=== PATIENT | male | born 1975 | race Caucasian/White ===

== ENCOUNTER → 2020-08-30 | Outpatient (CLI) | payer OTHER ==
--- NOTE | 2020-09-04 14:28 | PE ---
Nuclear medicine PET/CT HISTORY: Solitary pulmonary nodule, initial Patient received 13 mCi F-18 FDG intravenously in delayed scanning was performed from the skull base to the mid thighs. Localization and attenuation correction CT scan was performed. No comparisons Chest and neck: There is no cervical or supraclavicular adenopathy. Retrocaval pretracheal mediastina l node shows borderline enlargement. There is no associated adenopathy, there is a normal-appearing f atty hilus. No axillary or hilar adenopathy. Prevascular nodes are subcentimeter in size. There is no pleural or pericardial effusion. Calcified nodules are present within the lungs. Small soft tissue n odules present at the medial aspect of the left upper lobe on axial image 102 the subpleural location measuring only approximately 12 mm in size. No associated hypermetabolic uptake. ABDOMEN: Uptake along the bowel is likely physiologic. There is no ascites. No evident pelvic adenopa thy or retroperitoneal adenopathy. Suspect uptake along the inferior margin of the right lobe of the liver is artifactual, there is an unusual distribution which mirrors that of the hepatic flexure and proximal transverse colon, findings may be due to misregistration on diffusion images. Osseous structures show no suspicious uptake, there is a spinal curvature present. IMPRESSION: Old granulomatous disease. No suspicious uptake associated with pulmonary nodules, consid er follow-up to assess for stability
== END | disposition home or self-care (01) ==
LOC: RADPETMAIN 14:49
PROVIDERS: ATTEND Internal Medicine Critical Care Medicine
DX: D71 Functional disorders of polymorphonuclear neutrophils (principal); E11.9 Type 2 diabetes mellitus without complications
CPT/HCPCS: 78815; A9552

== ENCOUNTER 2023-02-27 12:23 | Inpatient (IN) | payer OTHER ==
--- NOTE | 2023-02-27 13:02 | ED ---
General Adult HPI - General Source: patient, RN notes reviewed, old records reviewed Mode of arrival: ambulatory Limitations: no limitations <Cheng Leone - Last Filed: 02/27/23 15:08> <Alejandro Chavez - Last Filed: 02/28/23 00:31> - General Chief complaint: Psychiatric Symptoms Stated complaint: mental health Time Seen by Provider: 02/27/23 12:25 - History of Present Illness Initial comments: This is a 47-year-old male presents emergency Department with his father and . Patient states he is here because he has been having some depression in the been very sad lately. Patient states he feels like he needs to get out of his own away from his but he still continued to live with her and they keep getting in arguments and he has pulled out of his gun case a gun multiple times threatening to hurt himself he never has but he does states for attention. Father believes he suicidal believes he suicidal. Patient denies suicidal he states it's just to get attention so someone was into her. Patient also states he has been told in the past his white count is elevated and he has elevated liver enzymes and he has multiple nodules on his lungs and is never followed up. Patient states lately he's been having difficulty breathing and some shortness of breath and states she's been coughing up quite a bit of blood. Patient denies any palpitations states she does have some chest pain occa sionally. He states his been ongoing for months. (Cheng Leone) - Related Data Home Medications Medication Instructions Recorded Confirmed Ascorbic Acid [Vitamin C] 1,000 mg PO DAILY 02/27/23 02/27/23 Multivit-Mins/Iron/Folic/Lycop 1 tab PO DAILY 02/27/23 02/27/23 [Centrum Men's Tablet] Omeprazole 20 mg PO DAILY 02/27/23 02/27/23 Sildenafil Citrate 50 mg PO DAILY PRN 02/27/23 02/27/23 Zinc Gluconate [Zinc] 50 mg PO DAILY 02/27/23 02/27/23 lisinopriL 40 mg PO DAILY 02/27/23 02/27/23 metFORMIN HCL ER [Glucophage XR] 1,000 mg PO BID 02/27/23 02/27/23 sitaGLIPtin [Januvia] 100 mg PO DAILY 02/27/23 02/27/23 Allergies Allergy/AdvReac Type Severity Reaction Status Date / Time No Known Allergies Allergy Verified 02/27/23 17:42 Review of Systems ROS Other: All systems not noted in ROS Statement are negative. <Cheng Leone - Last Filed: 02/27/23 15:08> ROS Other: All systems not noted in ROS Statement are negative. <Alejandro Chavez - Last Filed: 02/28/23 00:31> ROS Statement: Those systems with pertinent positive or pertinent negative responses have been documented in the HPI. Past Medical History Past Medical History: Diabetes Mellitus, Hypertension History of Any Multi-Drug Resistant Organisms: None Reported Past Surgical History: No Surgical Hx Reported Past Psychological History: No Psychological Hx Reported Smoking Status: Never smoker Past Alcohol Use History: Occasional Past Drug Use History: Heroin <Cheng Leone - Last Filed: 02/27/23 15:08> General Exam Limitations: no limitations <Cheng Leone - Last Filed: 02/27/23 15:08> - General Exam Comments Initial Comments: GENERAL: Patient is well-developed and well-nourished. Patient is nontoxic and well- hydrated and is in mild distress. ENT: Neck is soft and supple. No significant lymphadenopathy is noted. Oropharynx is clear. Moist mucous membranes. Neck has full range of motion without eliciting any pain. EYES: The sclera were anicteric and conjunctiva were pink and moist. Extraocular movements were intact and pupils were equal round and reactive to light. Eyelids were unremarkable. PULMONARY: Unlabored respirations. Good breath sounds bilaterally. No audible rales rhonchi or wheezing was noted. CARDIOVASCULAR: There is a regular rate and rhythm without any murmurs gallops or rubs. ABDOMEN: Soft and nontender with normal bowel sounds. SKIN: Skin is clear with no lesions or rashes and otherwise unremarkable. NEUROLOGIC: Patient is alert and oriented x3. Cranial nerves II through XII are grossly intact. Motor and sensory are also intact. Normal speech, volume and content. Symmetrical smile. MUSCULOSKELETAL: Normal extremities with adequate strength and full range of motion. LYMPHATICS: No significant lymphadenopathy is noted PSYCHIATRIC: Patient states he has made suicidal comments and he has pulled the gun out of the concave Synthroid to hurt himself (Cheng Leone) Course Vital Signs 02/27/23 02/27/23 02/27/23 12:23 22:35 22:37 Temperature 98 F 97.6 F Pulse Rate 88 Respiratory 16 20 20 Rate Blood Pressure 175/96 Blood Pressure 162/90 [Right Arm Sitting] O2 Sat by Pulse 97 98 98 Oximetry Medical Decision Making - Lab Data Result diagrams: 02/27/23 13:24 02/27/23 13:24 <Cheng Leone - Last Filed: 02/27/23 15:08> - Lab Data Result diagrams: 02/27/23 13:24 02/27/23 18:53 - EKG Data -: EKG Interpreted by Me <Alejandro Chavez - Last Filed: 02/28/23 00:31> - Medical Decision Making Patient is medically cleared 3:08 PM Was pt. sent in by a medical professional or institution (, PA, TEST GRADER, urgent care, hospital, or care home...) When possible be specific @ -[No] Did you speak to anyone other than the patient for history (EMS, parent, family, police, friend...)? What history was obtained from this source @ - and father both give part of the history from their perspective Did you review nursing and triage notes (agree or disagree)? Why? @ -[I reviewed and agree with nursing and triage notes] Were old charts reviewed (outside hosp., previous admission, EMS record, old EKG, old radiological studies, urgent care reports/EKG's, care home records)? Report findings @ -[No old charts were reviewed] Differential Diagnosis (chest pain, altered mental status, abdominal pain women, abdominal pain men, vaginal bleeding, weakness, fever, dyspnea, syncope, headach e, dizziness, GI bleed, back pain, seizure, CVA, palpatations, mental health, musculoskeletal)? @ -Differential Mental Health Depression, anxiety, bipolar, psychosis, schizophrenia, borderline personality, situational depression, adjustment disorder, behavioral disorder, brain tumor, malingering, substance abuse, encephalopathy, medication reaction, dementia, hypothyroidism, degenerative neurologic disorder, lupus.... This is not meant to be all-inclusive list EKG interpreted by me (3pts min.). @ -[As above] X-rays interpreted by me (1pt min.). @ -X-ray shows no acute abnormality CT interpreted by me (1pt min.). @ -[None done] U/S interpreted by me (1pt. min.). @ -[None done] What testing was considered but not performed or refused? (CT, X-rays, U/S, labs)? Why? @ -[None] What meds were considered but not given or refused? Why? @ -[None] Did you discuss the management of the patient with other professionals (professionals i.e. DrViktoria, PA, TEST GRADER, lab, RT, psych nurse, pediatric social worker, senior clinician, teacher, chief wellness officer, manager of case management)? Give summary @ -[No] Was smoking cessation discussed for >3mins.? @ -[No] Was critical care preformed (if so, how long)? @ -[No] Were there social determinants of health that impacted care today? How? (Homelessness, low income, unemployed, alcoholism, drug addiction, transportati on, low edu. Level, literacy, decrease access to med. care, detention, rehab)? @ -[No] Was there de-escalation of care discussed even if they declined (Discuss DNR or withdrawal of care, Hospice)? DNR status @ -[No] What co-morbidities impacted this encounter? (DM, HTN, Smoking, COPD, CAD, Cancer, CVA, ARF, Chemo, Hep., AIDS, mental health diagnosis, sleep apnea, morbid obesity)? @ -[None] Was patient admitted / discharged? Hospital course, mention meds given and route, prescriptions, significant lab abnormalities, going to OR and other pertinent info. @ -Patient had a basic workup done because he indicated he had a high white count in the past and liver enzymes were elevated in the past and he been coughing up some blood on occasion so I did chest x-ray and work the patient up lab work was all normal I medically cleared the patient and Dr. Chavez be taking over the care of this patient at 3 PM EPS nurse will be down to evaluate (Cheng Leone) Patient signed out to me pending results EPS evaluation. Was medically cleared by the primary physician. I was notified by EPS the patient does meet inpatient criteria. Patient will be admitted to inpatient psychiatry. EKG was obtained at this time and I reviewed it. It is within acceptable limits. Undiagnosed new problem with uncertain prognosis? @ -No Drug Therapy requiring intensive monitoring for toxicity (Heparin, Nitro, Insulin, Cardizem)? @ -No Were any procedures done? @ -No Diagnosis/symptom? @ -Encounter for psychiatric evaluation, depression, suicidal ideation Acute, or Chronic, or Acute on Chronic? @ -Acute Uncomplicated (without systemic symptoms) or Complicated (systemic symptoms)? @ -Complicated Side effects of treatment? @ -No Exacerbation, Progression, or Severe Exacerbation? @ -No Poses a threat to life or bodily function? How? (Chest pain, [place], [place], pneumonia, PE, COPD, DKA, ARF, appy, cholecystitis, CVA, Diverticulitis, Homicidal, Suicidal, threat to staff... and all critical care pts) @ -Yes (Alejandro Chavez) - Lab Data Lab Results 02/27/23 02/27/23 02/27/23 Range/Units 13:24 13:24 13:24 WBC 9.6 (3.8-10.6) k/uL RBC 5.59 (4.30-5.90) m/uL Hgb 17.0 (13.0-17.5) gm/dL Hct 50.6 (39.0-53.0) % MCV 90.5 (80.0-100.0) fL MCH 30.4 (25.0-35.0) pg MCHC 33.5 (31.0-37.0) g/dL RDW 12.5 (11.5-15.5) % Plt Count 232 (150-450) k/uL MPV 9.0 Neutrophils % 74 % Lymphocytes % 17 % Monocytes % 6 % Eosinophils % 2 % Basophils % 1 % Neutrophils # 7.1 (1.3-7.7) k/uL Lymphocytes # 1.6 (1.0-4.8) k/uL Monocytes # 0.5 (0-1.0) k/uL Eosinophils # 0.2 (0-0.7) k/uL Basophils # 0.1 (0-0.2) k/uL PT 10.4 (9.0-12.0) sec INR 1.0 (<1.2) APTT 22.6 (22.0-30.0) sec D-Dimer 0.30 (<0.60) mg/L FEU Sodium 134 L (137-145) mmol/L Potassium 5.1 (3.5-5.1) mmol/L Chloride 96 L (98-107) mmol/L Carbon Dioxide 29 (22-30) mmol/L Anion Gap 9 mmol/L BUN 14 (9-20) mg/dL Creatinine 0.79 (0.66-1.25) mg/dL Est GFR (CKD-EPI)AfAm >90 (>60 ml/min/1.73 sqM) Est GFR (CKD-EPI)NonAf >90 (>60 ml/min/1.73 sqM) Glucose 308 H (74-99) mg/dL Calcium 9.6 (8.4-10.2) mg/dL Magnesium 1.8 (1.6-2.3) mg/dL Total Bilirubin 1.2 (0.2-1.3) mg/dL AST 68 H (17-59) U/L ALT 125 H (4-49) U/L Alkaline Phosphatase 119 (38-126) U/L Total Protein 7.7 (6.3-8.2) g/dL Albumin 4.4 (3.5-5.0) g/dL Coronavirus (PCR) (Not Detectd) 02/27/23 02/27/23 Range/Units 18:53 18:53 WBC (3.8-10.6) k/uL RBC (4.30-5.90) m/uL Hgb (13.0-17.5) gm/dL Hct (39.0-53.0) % MCV (80.0-100.0) fL MCH (25.0-35.0) pg MCHC (31.0-37.0) g/dL RDW (11.5-15.5) % Plt Count (150-450) k/uL MPV Neutrophils % % Lymphocytes % % Monocytes % % Eosinophils % % Basophils % % Neutrophils # (1.3-7.7) k/uL Lymphocytes # (1.0-4.8) k/uL Monocytes # (0-1.0) k/uL Eosinophils # (0-0.7) k/uL Basophils # (0-0.2) k/uL PT (9.0-12.0) sec INR (<1.2) APTT (22.0-30.0) sec D-Dimer (<0.60) mg/L FEU Sodium 132 L (137-145) mmol/L Potassium 4.7 (3.5-5.1) mmol/L Chloride 98 (98-107) mmol/L Carbon Dioxide 26 (22-30) mmol/L Anion Gap 8 mmol/L BUN 15 (9-20) mg/dL Creatinine 0.74 (0.66-1.25) mg/dL Est GFR (CKD-EPI)AfAm >90 (>60 ml/min/1.73 sqM) Est GFR (CKD-EPI)NonAf >90 (>60 ml/min/1.73 sqM) Glucose 365 H (74-99) mg/dL Calcium 9.0 (8.4-10.2) mg/dL Magnesium (1.6-2.3) mg/dL Total Bilirubin 1.2 (0.2-1.3) mg/dL AST 65 H (17-59) U/L ALT 109 H (4-49) U/L Alkaline Phosphatase 98 (38-126) U/L Total Protein 7.0 (6.3-8.2) g/dL Albumin 3.9 (3.5-5.0) g/dL Coronavirus (PCR) Not Detected (Not Detectd) - EKG Data EKG Comments: 12-lead Electrocardiogram Interpretation Note EKG was reviewed and interpreted by myself. 12-lead ECG performed at 1853 is interpreted by me as revealing normal sinus rhythm at a rate of 31 beats per minute. [place] is normal. [place] interval is 132 ms, QRS durations 113 ms, QTc is 376 ms.. There were nonspecific ST or T wave abnormalities to suggest myocardial ischemia or injury. R wave progression across the precordium was satisfactory. By my interpretation this EKG is non-diagnostic for acute ischemia. (Alejandro Chavez) Disposition <Cheng Leone - Last Filed: 02/27/23 15:08> <Alejandro Chavez - Last Filed: 02/28/23 00:31> Clinical Impression: Encounter for psychiatric assessment, Suicidal ideation, Depression Disposition: ADMITTED IP TO THIS HOSP Condition: Stable
[2023-02-27 13:39] LABS: Basophils # (A) 0.1 k/uL (0-0.2); Basophils % (A) 1 %; Eosinophils # (A) 0.2 k/uL (0-0.7); Eosinophils % (A) 2 %; HCT 50.6 % (39.0-53.0); Lymphocytes # (A) 1.6 k/uL (1.0-4.8); Lymphocytes % (A) 17 %; MCH 30.4 pg (25.0-35.0); MCHC 33.5 g/dL (31.0-37.0); MCV 90.5 fL (80.0-100.0); Monocytes # (A) 0.5 k/uL (0-1.0); Monocytes % (A) 6 %; Neutrophils # (A) 7.1 k/uL (1.3-7.7); Neutrophils % (A) 74 %; Platelet Count 232 k/uL (150-450); RBC 5.59 m/uL (4.30-5.90); RDW 12.5 % (11.5-15.5); WBC 9.6 k/uL (3.8-10.6)
[2023-02-27 13:49] LABS: ALT 125 U/L (4-49); AST 68 U/L (17-59); African American GFR (CKD) >90 (>60 ml/min/1.73 sqM); Albumin 4.4 g/dL (3.5-5.0); Alkaline Phosphatase 119 U/L (38-126); Anion Gap 9 mmol/L; Blood Urea Nitrogen 14 mg/dL (9-20); Calcium 9.6 mg/dL (8.4-10.2); Carbon Dioxide 29 mmol/L (22-30); Chloride 96 mmol/L (98-107); Glucose 308 mg/dL (74-99); Magnesium 1.8 mg/dL (1.6-2.3); Non-African American GFR(CKD) >90 (>60 ml/min/1.73 sqM); Potassium 5.1 mmol/L (3.5-5.1); Sodium 134 mmol/L (137-145); Total Bilirubin 1.2 mg/dL (0.2-1.3); Total Protein 7.7 g/dL (6.3-8.2)
[2023-02-27 13:56] LABS: Partial Thromboplastin Time 22.6 sec (22.0-30.0); Prothrombin Time 10.4 sec (9.0-12.0)
--- NOTE | 2023-02-27 14:12 | XR ---
EXAMINATION TYPE: XR chest 2V DATE OF EXAM: 02/27/2023 1:55 PM COMPARISON: None TECHNIQUE: XR chest 2V Frontal and lateral views of the chest. CLINICAL INDICATION:Male, 47 years old with history of Difficulty breathing ; FINDINGS: Lungs/Pleura: There is no evidence of pleural effusion, focal consolidation, or pneumothorax. Pulmonary vascularity: Unremarkable. Heart/mediastinum: Cardiomediastinal silhouette is unremarkable. Musculoskeletal: No acute osseous pathology. IMPRESSION: No acute cardiopulmonary disease/process.
[2023-02-27 19:22] LABS: ALT 109 U/L (4-49); AST 65 U/L (17-59); African American GFR (CKD) >90 (>60 ml/min/1.73 sqM); Albumin 3.9 g/dL (3.5-5.0); Alkaline Phosphatase 98 U/L (38-126); Anion Gap 8 mmol/L; Blood Urea Nitrogen 15 mg/dL (9-20); Carbon Dioxide 26 mmol/L (22-30); Chloride 98 mmol/L (98-107); Glucose 365 mg/dL (74-99); Non-African American GFR(CKD) >90 (>60 ml/min/1.73 sqM); Sodium 132 mmol/L (137-145); Total Bilirubin 1.2 mg/dL (0.2-1.3)
[2023-02-27 19:23] LABS: Potassium 4.7 mmol/L (3.5-5.1)
[2023-02-27] MEDS ORDERED: ACETAMINOPHEN TAB 325 MG TAB PO PRN (20:10)
[2023-02-27] MEDS ORDERED: MAGNESIUM HYDROXIDE 2,400 MG/30 ML CUP PO PRN (20:10)
[2023-02-27] MEDS ORDERED: hydrOXYzine HCL 50 MG/ML 1 ML VIAL IM PRN (20:10)
[2023-02-27] MEDS ORDERED: MAG HYDROX/AL HYDROX/SIMETH 30 ML CUP PO PRN (20:10)
[2023-02-27] MEDS ORDERED: NON FORMULARY DRUG (Sildenafil Citrate [Sildenafil Citrate] 50 MG Tablet) PO PRN (20:15)
[2023-02-27] MEDS: metFORMIN 500 MG TAB PO SCH (21:39)
[2023-02-27] MEDS: lisinopriL 20 MG TAB PO SCH (22:14)
[2023-02-28 07:52] LABS: Glucose,Whole Blood 262 mg/dL (70-110)
[2023-02-28] MEDS: metFORMIN 500 MG TAB PO SCH ×2 (08:58→20:05)
[2023-02-28] MEDS ORDERED: PANTOPRAZOLE 40 MG TABLET PO SCH (09:00)
[2023-02-28] MEDS ORDERED: ZINC SULFATE 220 MG CAP PO SCH (09:00)
[2023-02-28] MEDS ORDERED: lisinopriL 20 MG TAB PO SCH (09:00)
[2023-02-28] MEDS ORDERED: LINAGLIPTIN 5 MG TABLET PO SCH (09:00)
[2023-02-28] MEDS: ASCORBIC ACID 500 MG TAB PO SCH (09:02)
[2023-02-28] MEDS: MULTIVITAMINS, THERA 1 EACH TAB PO SCH (09:02)
--- NOTE | 2023-02-28 11:57 | P.HP ---
Psychiatric H&P - . H&P Date: 02/28/23 History & Physical: Allergies Allergy/AdvReac Type Severity Reaction Status Date / Time No Known Allergies Allergy Verified 02/27/23 17:42 Vital Signs Temp 97.4 F L 02/28/23 07:19 Pulse 77 02/28/23 07:19 Resp 18 02/28/23 07:19 BP 131/71 02/28/23 07:19 Pulse Ox 99 02/28/23 07:19 FiO2 Intake & Output 02/27/23 02/28/23 02/28/23 18:59 06:59 18:59 Weight 136.078 kg 131.8 kg Laboratory Last Values WBC 9.6 k/uL (3.8-10.6) 02/27/23 13:24 RBC 5.59 m/uL (4.30-5.90) 02/27/23 13:24 Hgb 17.0 gm/dL (13.0-17.5) 02/27/23 13:24 Hct 50.6 % (39.0-53.0) 02/27/23 13:24 MCV 90.5 fL (80.0-100.0) 02/27/23 13:24 MCH 30.4 pg (25.0-35.0) 02/27/23 13:24 MCHC 33.5 g/dL (31.0-37.0) 02/27/23 13:24 RDW 12.5 % (11.5-15.5) 02/27/23 13:24 Plt Count 232 k/uL (150-450) 02/27/23 13:24 MPV 9.0 02/27/23 13:24 Neutrophils % 74 % 02/27/23 13:24 Lymphocytes % 17 % 02/27/23 13:24 Monocytes % 6 % 02/27/23 13:24 Eosinophils % 2 % 02/27/23 13:24 Basophils % 1 % 02/27/23 13:24 Neutrophils # 7.1 k/uL (1.3-7.7) 02/27/23 13:24 Lymphocytes # 1.6 k/uL (1.0-4.8) 02/27/23 13:24 Monocytes # 0.5 k/uL (0-1.0) 02/27/23 13:24 Eosinophils # 0.2 k/uL (0-0.7) 02/27/23 13:24 Basophils # 0.1 k/uL (0-0.2) 02/27/23 13:24 PT 10.4 sec (9.0-12.0) 02/27/23 13:24 INR 1.0 (<1.2) 02/27/23 13:24 APTT 22.6 sec (22.0-30.0) 02/27/23 13:24 D-Dimer 0.30 mg/L FEU (<0.60) 02/27/23 13:24 Sodium 132 mmol/L (137-145) L 02/27/23 18:53 Potassium 4.7 mmol/L (3.5-5.1) 02/27/23 18:53 Chloride 98 mmol/L (98-107) 02/27/23 18:53 Carbon Dioxide 26 mmol/L (22-30) 02/27/23 18:53 Anion Gap 8 mmol/L 02/27/23 18:53 BUN 15 mg/dL (9-20) 02/27/23 18:53 Creatinine 0.74 mg/dL (0.66-1.25) 02/27/23 18:53 Est GFR (CKD-EPI)AfAm >90 (>60 ml/min/1.73 sqM) 02/27/23 18:53 Est GFR (CKD-EPI)NonAf >90 (>60 ml/min/1.73 sqM) 02/27/23 18:53 Glucose 365 mg/dL (74-99) H 02/27/23 18:53 POC Glucose (mg/dL) 262 mg/dL (70-110) H 02/28/23 07:48 POC Glu Foreign Language Teacher ID Gonsalo Jorge 02/28/23 07:48 Calcium 9.0 mg/dL (8.4-10.2) 02/27/23 18:53 Magnesium 1.8 mg/dL (1.6-2.3) 02/27/23 13:24 Total Bilirubin 1.2 mg/dL (0.2-1.3) 02/27/23 18:53 AST 65 U/L (17-59) H 02/27/23 18:53 ALT 109 U/L (4-49) H 02/27/23 18:53 Alkaline Phosphatase 98 U/L (38-126) 02/27/23 18:53 Total Protein 7.0 g/dL (6.3-8.2) 02/27/23 18:53 Albumin 3.9 g/dL (3.5-5.0) 02/27/23 18:53 TSH 0.453 mIU/L (0.465-4.680) L 02/27/23 13:24 Coronavirus (PCR) Not Detected (Not Detectd) 02/27/23 18:53 02/28/23 09:19 IDENTIFYING DATA: Patient is a , employed, 47-year-old male who is presenting with suicidal ideation HPI: Patient was brought into the ED by his over concerns about pulling out a gun to harm himself. Patient today states that over the past 8 months, he has been experiencing numerous stressors at the same time. He states that he has filed for divorce due to the relationship with his having gotten worse for the past few years. He also states that he lost his mother, with whom he was reconnecting emotionally, to terminal cancer in July 2022. 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 He endorses feeling depressed for a large portion of the past 4 months. He says that he has been trying to get his to take his emotions seriously but felt that she has not been doing so. As a result, he decided to pull out a gun yesterday and set it on top of the safe. He says that the gun was unloaded but that he told his that he wants to hurt himself with it. He reports that this was an attempt to gain her attention and so that she might take his emotions seriously but that it was not done an effort to attempt suicide. However, he admits that this is a serious action and that it could've potentially resulted in serious harm. In psychiatric review of systems, patient reports adequate sleep and energy. However, he endorses concentration issues and feelings of guilt. He denies anxiety. He denies constellation of symptoms consistent with xavi. He denies auditory and visual hallucinations. He denies suicidal and homicidal ideation currently, as asked and assessed. He states that his has changed the combination on the gun safe since then. PSYCH HX: Patient reports never having seen a psychiatrist in the past. He denies a history of hospitalizations or receiving any other psychiatric treatment in the past. He denies self-injurious behaviors or suicide attempts. He states that he has been attending [facility] counseling services. PMH: Past Medical History: Diabetes Mellitus, Hypertension History of Any Multi-Drug Resistant Organisms: None Reported Past Surgical History: No Surgical Hx Reported Past Psychological History: No Psychological Hx Reported Smoking Status: Never smoker Past Alcohol Use History: Occasional Past Drug Use History: Heroin? SUBSTANCE HX: Alcohol: Socially Tobacco: Denies Cannabis: Denies Denies using other substances SOCIAL/LEGAL HX: He states that he was bullied as a child in sixth grade but that his mother was his support. He states that his mother in July 2022 due to terminal cancer. He says he has been for the past 18 years. He reports having experience trouble in his relationship with his over the past few years. Th ey have two daughters who are 9 and 12 years old. Patient enjoys archery and hunting. 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 Patient appears to have fair hygiene and grooming. Behavior: Patient is seated without any agitated behavior. Speech: Patient's speech is fluent and nonpressured. Mood/Affect: Patient reports their mood is "depressed", affect is congruent and constricted. Suicidality/Homicidality: Patient denies having any homicidal ideation intent or plan. Denies any suicidal ideations intent or plan Perceptions: Patient denies any visual hallucinations and denies any auditory hallucinations Though content/process: There is no evidence of any delusional thought content and thought process is linear and goal-directed. Memory and concentration: AOX3, grossly intact for the purposes of this session. Can spell "WORLD" backwards Judgment and insight: Fair insight but impulsive judgement STRENGTHS/WEAKNESSES: Strength is family support and patient is functional. Weakness is interpersonal problems. INTELLECT: average IMPRESSIONS: Adjustment disorder with depressed mood Bereavement PLAN: -Patient is admitted under voluntary status to MHU for stabilization of psychiatric symptoms and safety. Patient signed adult voluntary form and medication consent and is placed in patient's chart. -Medications : Zoloft 50 mg daily for mood - Vistaril PRN for anxiety/agitation -EKG reviewed. LFTs mildly elevated -Patient was informed of the risks, benefits and side effects of the medication and patient verbally consented to taking the medications. Patient signed med consent form and was placed in chart. -Internal Medicine consult to perform medical evaluation and physical. -SW on board for discharge planning. Encourage patient to participate in groups to work on coping skills. 02/28/23 10:57 02/28/23 11:54
[2023-02-28 12:42] LABS: Glucose,Whole Blood 278 mg/dL (70-110)
[2023-02-28] MEDS: SERTRALINE 50 MG TAB PO SCH (12:50)
[2023-02-28 13:06] LABS: Chol/HDL Ratio 5.68 Ratio; LDL Cholesterol,Calculated 182.2 mg/dL (0.0-131.0)
[2023-02-28] MEDS: INSULIN ASPART (NovoLOG) 100 UNIT/ML VIAL SQ SCH ×3 (13:06→20:07)
[2023-02-28 13:11] LABS: Appearance,Urine Clear (Clear); Bilirubin,Urine Negative (Negative); Blood,Urine Negative (Negative); Color,Urine Yellow; Glucose,Urine (UA) 4+ (Negative); Ketones,Urine 1+ (Negative); Leukocyte Esterase,Urine Negative (Negative); Mucus,Urine Few /hpf; Nitrite,Urine Negative (Negative); PH, Urine 5.5 (5.0-8.0); Protein,Urine 1+ (Negative); RBC,Urine 1 /hpf (0-5); Specific Gravity,Urine 1.033 (1.001-1.035); WBC,Urine 1 /hpf (0-5)
[2023-02-28 13:12] LABS: Amphetamine Screen,Urine Not Detected (NotDetected); Barbiturate Screen,Urine Not Detected (NotDetected); Benzodiazepines Screen,Urine Not Detected (NotDetected); Cocaine Screen,Urine Not Detected (NotDetected); Methadone Screen, Urine Not Detected (NotDetected); Opiate Screen,Urine Not Detected (NotDetected); Phencyclidine Screen,Urine Not Detected (NotDetected); Tricyclic Antidepressant,Urine Not Detected (NotDetected); Urn Cannabinoid Scrn Not Detected (NotDetected)
[2023-02-28 13:13] LABS: Oxycodone Screen, Urine Not Detected (NotDetected)
[2023-02-28 17:35] LABS: Glucose,Whole Blood 282 mg/dL (70-110)
--- NOTE | 2023-02-28 18:37 | P.CONS ---
History of Present Illness - Reason for Consult Consult date: 02/28/23 Medical management Requesting physician: Andrea Cruz - Chief Complaint Harm himself - History of Present Illness This is a pleasant 47-year-old patient follows with Francesco Benavidez. Patient is brought to the ER by his as the patient of Dr. Gonzalez home himself. Patie nt is multiple stresses going on. He lost his mother 2 months ago. Also relationship with his is not in good. Mother had cancer and Mother in August 04 or intake is fair. His sleeping is fair. Strength to do this to gain attention. Not really wanting to harm himself. He does feel guilty that he could've done a better job with his relationship with his . No hallucinations. 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 . No smoking or alcohol. Physical examination: VITAL SIGNS: 97.4, 77, 18, 131/71, 99% room air] GENERAL: BMI 34.5, sitting at edge of the bed awake. EYES: Pupils equal. Conjunctiva normal. HEENT: External appearance of nose and ears normal, oral cavity grossly normal. NECK: JVD not raised; masses not palpable. HEART: First and second heart sounds are normal; no edema. LUNGS: Respiratory rate normal; clear to auscultation. ABDOMEN: Soft, nontender, liver spleen not palpable, no masses palpable. PSYCH: Alert and oriented x3; mood and affect a bit lowl. MUSCULOSKELETAL:No Clubbing/cyanosis;muscles-grossly intact NEUROLOGICAL: Cranial nerves grossly intact; no facial asymmetry, power and sensation grossly intact. LYMPHATICS: No lymph nodes palpable in the axilla and neck INVESTIGATIONS, reviewed in the clinical context: White count 9.6 hemoglobin 17 platelets 232 potassium 4.7 BUN 15 creatinine 0.74 Accu-Cheks noted AST 65 ALT 109 LDL 182 TSH 0.453 Assessment and plan: -Diabetes mellitus type 2, on oral hypoglycemic. Uncontrolled with hyperglycemia. Patient has missed his medications after readmitted. Oral hypoglycemic resume. Sliding scale with Accu-Cheks. -GERD Protonix 40 mg -Essential hypertension Zestril 40 mg daily at bedtime -Obesity BMI 34.5 Weight loss measures -Hyperlipidemia Start Lipitor 40 mg daily at bedtime -Abnormal LFTs Hepatic ultrasound. Rule out underlying hepatic steatosis -Low TSH. Patient clinically doesn't appear to be hyperthyroid. We will recheck TSH and a free T4. Thank you. Patient is being covered from tomorrow by [facility] hospitalist. They'll follow the patient. Past Medical History Past Medical History: Diabetes Mellitus, Hypertension History of Any Multi-Drug Resistant Organisms: None Reported Past Surgical History: No Surgical Hx Reported Past Anesthesia/Blood Transfusion Reactions: No Reported Reaction Past Psychological History: No Psychological Hx Reported Smoking Status: Never smoker Past Alcohol Use History: Occasional, Rare Past Drug Use History: Heroin Additional Drug Use History / Comment(s): pt quit using heroin at 20 years old and doesn't do any drugs Medications and Allergies Home Medications Medication Instructions Recorded Confirmed Type Ascorbic Acid [Vitamin C] 1,000 mg PO DAILY 02/27/23 02/27/23 History Multivit-Mins/Iron/Folic/Lycop 1 tab PO DAILY 02/27/23 02/27/23 History [Centrum Men's Tablet] Omeprazole 20 mg PO DAILY 02/27/23 02/27/23 History Sildenafil Citrate 50 mg PO DAILY PRN 02/27/23 02/27/23 History Zinc Gluconate [Zinc] 50 mg PO DAILY 02/27/23 02/27/23 History lisinopriL 40 mg PO DAILY 02/27/23 02/27/23 History metFORMIN HCL ER [Glucophage XR] 1,000 mg PO BID 02/27/23 02/27/23 History sitaGLIPtin [Januvia] 100 mg PO DAILY 02/27/23 02/27/23 History Allergies Allergy/AdvReac Type Severity Reaction Status Date / Time No Known Allergies Allergy Verified 02/27/23 17:42 Physical Exam Vitals: Vital Signs Temp Pulse Resp BP Pulse Ox 02/28/23 07:19 97.4 F L 77 18 131/71 99 02/27/23 22:37 20 162/90 98 02/27/23 22:35 97.6 F 20 98 Intake and Output 02/27/23 02/28/23 02/28/23 22:59 06:59 14:59 Other: Weight 131.8 kg Results CBC & Chem 7: 02/27/23 13:24 02/27/23 18:53 Labs: Abnormal Lab Results - Last 24 Hours (Table) 02/27/23 02/27/23 02/27/23 Range/Units 13:24 13:24 18:53 Sodium 134 L 132 L (137-145) mmol/L Chloride 96 L (98-107) mmol/L Glucose 308 H 365 H (74-99) mg/dL POC Glucose (mg/dL) (70-110) mg/dL AST 68 H 65 H (17-59) U/L ALT 125 H 109 H (4-49) U/L TSH 0.453 L (0.465-4.680) mIU/L 02/28/23 Range/Units 07:48 Sodium (137-145) mmol/L Chloride (98-107) mmol/L Glucose (74-99) mg/dL POC Glucose (mg/dL) 262 H (70-110) mg/dL AST (17-59) U/L ALT (4-49) U/L TSH (0.465-4.680) mIU/L
[2023-02-28 20:04] LABS: Glucose,Whole Blood 355 mg/dL (70-110)
[2023-02-28] MEDS: lisinopriL 20 MG TAB PO SCH (20:05)
[2023-02-28] MEDS: ZINC SULFATE 220 MG CAP PO SCH (20:05)
[2023-02-28] MEDS: PANTOPRAZOLE 40 MG TABLET PO SCH (20:05)
[2023-02-28] MEDS: ATORVASTATIN 40 MG TAB PO SCH (20:05)
[2023-02-28 22:08] LABS: Glucose,Whole Blood 291 mg/dL (70-110)
[2023-03-01 06:51] VITALS: RESP 16
[2023-03-01 07:56] LABS: Glucose,Whole Blood 303 mg/dL (70-110)
[2023-03-01] MEDS: INSULIN ASPART (NovoLOG) 100 UNIT/ML VIAL SQ SCH ×4 (08:12→21:22)
[2023-03-01] MEDS: metFORMIN 500 MG TAB PO SCH ×2 (08:50→21:22)
[2023-03-01] MEDS: MULTIVITAMINS, THERA 1 EACH TAB PO SCH (08:50)
[2023-03-01] MEDS: SERTRALINE 50 MG TAB PO SCH (08:51)
[2023-03-01] MEDS: ASCORBIC ACID 500 MG TAB PO SCH (08:51)
--- NOTE | 2023-03-01 08:53 | US ---
EXAMINATION TYPE: US abdomen limited DATE OF EXAM: 03/01/2023 COMPARISON: NONE CLINICAL INDICATION: Male, 47 years old with history of Some elevation of LFT; Abnormal labs. Portab le exam. TECHNIQUE: Multiple sonographic images of the right upper quadrant are obtained. FINDINGS: EXAM MEASUREMENTS: Liver Length: 20.5 cm Gallbladder Wall: 0.2 cm CBD: 0.5 cm Right Kidney: 14.8 x 6.5 x 5.5 cm WELT SLASHER NOTES:Limited due to bowel gas Pancreas: Echogenic in appearance. Head and tail obscured by bowel gas. Liver: Enlarged in size. Appears coarse. Gallbladder: Echogenic focus adjacent to wall= 1.1 x 0.9 cm Evidence for sonographic Garrison's sign: neg CBD: wnl Right Kidney: No hydronephrosis or masses seen IMPRESSION: 1. Hepatomegaly with underlying hepatic steatosis. 2. Echogenic focus adjacent to the gallbladder wall may reflect a polyp or calculus.
[2023-03-01] MEDS: INSULIN DETEMIR (LEVEMIR) 100 UNIT/ML SYR SQ SCH ×2 (10:17→21:21)
[2023-03-01 11:09] LABS: ALT 111 U/L (4-49); AST 69 U/L (17-59); African American GFR (CKD) >90 (>60 ml/min/1.73 sqM); Albumin 4.1 g/dL (3.5-5.0); Alkaline Phosphatase 96 U/L (38-126); Anion Gap 8 mmol/L; Blood Urea Nitrogen 16 mg/dL (9-20); Calcium 9.6 mg/dL (8.4-10.2); Carbon Dioxide 27 mmol/L (22-30); Chloride 100 mmol/L (98-107); Glucose 333 mg/dL (74-99); Non-African American GFR(CKD) >90 (>60 ml/min/1.73 sqM); Sodium 135 mmol/L (137-145); Total Protein 7.4 g/dL (6.3-8.2)
--- NOTE | 2023-03-01 12:03 | P.PN ---
Progress Note - Text Progress Note Date: 03/01/23 Interval history: Patient was seen today in group and was agreeable to speak to clinical writer in the of trevor. he spoke briefly about his stressors in his relationship. he claims that he was feeling fairly depressed and also going through a divorce. claims that he regrets making the decision to take out his gun and wave it around. he states that the zoloft has been helping, making him feel more positive at this time. he states that his anxiety is improving. he claims his sleep is ok, he is denying any si or HI and denies any AH or VH. claims that he is sleeping fairly at night time. he was also somewhat upset today about his blood sugars and states that he gets better control of it at home. Mental status examination: General Appearance: Patient appears to be stated age is alert, directable, and attempts to cooperate. Patient appears to have fair hygiene and grooming. Behavior: Patient is seated without any agitated behavior. more cooeprative today Speech: Patient's speech is fluent and nonpressured. Mood/Affect: Patient reports their mood is "a bit better", affect is congruent Suicidality/Homicidality: Patient denies having any homicidal ideation intent or plan. Denies any suicidal ideations intent or plan Perceptions: Patient denies any visual hallucinations and denies any auditory hallucinations Though content/process: There is no evidence of any delusional thought content and thought process is linear and goal-directed. Memory and concentration: AOX3, grossly intact for the purposes of this session Judgment and insight: mildly improving IMPRESSIONS: Adjustment disorder with depressed mood Bereavement PLAN: -Patient is admitted under voluntary status to [facility] for stabilization of psychiatric symptoms and safety. Patient signed adult voluntary form and medication consent and is placed in patient's chart. -Medications : Zoloft 50 mg daily for mood/anxiety. - Vistaril PRN for anxiety/agitation -NRT - not needed as patient does not smoke. -SW on board for discharge planning. Encourage patient to participate in groups to work on coping skills. Sw to confirm that guns are away and locked. likely prepare for discharge tomorrow.
--- NOTE | 2023-03-01 12:11 | P.GSCN ---
History of Present Illness Consult date: 03/01/23 History of present illness: CHIEF COMPLAINT: Depression Reason for consult abnormal ultrasound with hepatomegaly and hepatic steatosis HISTORY OF PRESENT ILLNESS: This is a 47-year-old male who presented to hospital with evidence of depression. He has been admitted to the psychiatric unit. He has had elevated liver enzymes and abdominal ultrasound was completed that showed hepatomegaly with underlying hepatic steatosis. Echogenic focus adjacent to the gallbladder wall may reflect a polyp or calculus. Patient does report having history of a gallstone about 3 years ago in which she did have pain in the right upper quadrant that time. He reports no abdominal pain. Denies any nausea or vomiting. Denies any difficulty eating. He does report that he socially drinks alcohol 1-2 drinks monthly with friends. Patient does report recent antibiotic use the Z-Antonio about a week ago. Patient reports having a known history of elevated liver enzymes. PAST MEDICAL HISTORY: Diabetes and hypertension PAST SURGICAL HISTORY: See below MEDICATIONS: See below ALLERGIES: See below SOCIAL HISTORY: No illicit drug use. REVIEW OF SYSTEMS: CONSTITUTIONAL: Denies fever or chills. HEENT: Denies blurred vision, vision changes, or eye pain. Denies hemoptysis CARDIOVASCULAR: Denies chest pain or pressure. RESPIRATORY: No shortness of breath. GASTROINTESTINAL: See HPI for pertinent findings HEMATOLOGIC: Denies bleeding disorders. GENITOURINARY: Denies any blood in urine or increased urinary frequency. SKIN: Denies pruitis. Denies rash. PHYSICAL EXAM: VITAL SIGNS: Reviewed GENERAL: Well-developed in no acute distress. HEENT: No sclera icterus. Extraocular movements grossly intact. Moist buccal mucosa. Head is atraumatic, normocephalic. No nasal drainage. ABDOMEN: Soft. Nondistended. Nontender. Patient has no tenderness to palpation in the right upper quadrant NEUROLOGIC: Alert and oriented. Cranial nerves II through XII grossly intact. LABORATORY DATA: WBC is 9.6 Hgb 17 platelets 232 INR 1.0 Sodium is 132 potassium is 4.7 BUN 15 creatinine 0.74 Glucose 303 Hemoglobin A1c 10.8 Total bilirubin 1.2 AST 68-65 ALT 125-109 alk phos 98 IMAGING: Abdominal ultrasound as stated above ASSESSMENT: 1. Mildly elevated LFTs with evidence of hepatomegaly and hepatic steatosis on ultrasound 2. Possible gallstone versus gallbladder polyp noted on ultrasound. Patient has no abdominal pain 3. Depression followed by psychiatry and admitted to psychiatric unit 4. Diabetes mellitus PLAN: -Recommend laparoscopic cholecystectomy outpatient when medically stable -Recommend low-fat, carb consistent diet -Repeat LFTs -Depression management per psychiatry Physician [employer] Worker note has been reviewed by physician. Signing provider agrees with the documented findings, assessment, and plan of care. Past Medical History Past Medical History: Diabetes Mellitus, Hypertension History of Any Multi-Drug Resistant Organisms: None Reported Past Surgical History: No Surgical Hx Reported Past Anesthesia/Blood Transfusion Reactions: No Reported Reaction Past Psychological History: No Psychological Hx Reported Smoking Status: Never smoker Past Alcohol Use History: Occasional, Rare Past Drug Use History: Heroin Additional Drug Use History / Comment(s): pt quit using heroin at 20 years old and doesn't do any drugs Medications and Allergies Home Medications Medication Instructions Recorded Confirmed Type Ascorbic Acid [Vitamin C] 1,000 mg PO DAILY 02/27/23 02/27/23 History Multivit-Mins/Iron/Folic/Lycop 1 tab PO DAILY 02/27/23 02/27/23 History [Centrum Men's Tablet] Omeprazole 20 mg PO DAILY 02/27/23 02/27/23 History Sildenafil Citrate 50 mg PO DAILY PRN 02/27/23 02/27/23 History Zinc Gluconate [Zinc] 50 mg PO DAILY 02/27/23 02/27/23 History lisinopriL 40 mg PO DAILY 02/27/23 02/27/23 History metFORMIN HCL ER [Glucophage XR] 1,000 mg PO BID 02/27/23 02/27/23 History sitaGLIPtin [Januvia] 100 mg PO DAILY 02/27/23 02/27/23 History Allergies Allergy/AdvReac Type Severity Reaction Status Date / Time No Known Allergies Allergy Verified 02/27/23 17:42 Surgical - Exam Vital Signs Temp Pulse Resp BP Pulse Ox 98 F 88 16 175/96 97 02/27/23 12:23 02/27/23 12:23 02/27/23 12:23 02/27/23 12:23 02/27/23 12:23 Results - Labs 02/27/23 13:24 03/01/23 10:36 Abnormal Lab Results - Last 24 Hours (Table) 02/27/23 02/27/23 02/28/23 Range/Units 13:24 13:24 12:40 POC Glucose (mg/dL) (70-110) mg/dL Hemoglobin A1c 10.8 H (<=6.0) % Cholesterol 251.00 H (0.00-200.00) mg/dL LDL Cholesterol, Calc 182.2 H (0.0-131.0) mg/dL Urine Protein 1+ H (Negative) Urine Glucose (UA) 4+ H (Negative) Urine Ketones 1+ H (Negative) Urine Mucus Few H (None) /[facility] 02/28/23 02/28/23 02/28/23 Range/Units 12:40 17:33 20:02 POC Glucose (mg/dL) 278 H 282 H 355 H (70-110) mg/dL Hemoglobin A1c (<=6.0) % Cholesterol (0.00-200.00) mg/dL LDL Cholesterol, Calc (0.0-131.0) mg/dL Urine Protein (Negative) Urine Glucose (UA) (Negative) Urine Ketones (Negative) Urine Mucus (None) /[facility] 02/28/23 03/01/23 Range/Units 22:04 07:54 POC Glucose (mg/dL) 291 H 303 H (70-110) mg/dL Hemoglobin A1c (<=6.0) % Cholesterol (0.00-200.00) mg/dL LDL Cholesterol, Calc (0.0-131.0) mg/dL Urine Protein (Negative) Urine Glucose (UA) (Negative) Urine Ketones (Negative) Urine Mucus (None) /[facility] Diabetes panel 02/27/23 02/27/23 Range/Units 13:24 13:24 Hemoglobin A1c 10.8 H (<=6.0) % Triglycerides 123.00 (0.00-149.00) mg/dL HDL Cholesterol 44.20 (40.00-60.00) mg/dL
[2023-03-01 12:55] VITALS: BMI 34.4
[2023-03-01 13:01] LABS: Glucose,Whole Blood 270 mg/dL (70-110)
[2023-03-01 17:31] LABS: Glucose,Whole Blood 241 mg/dL (70-110)
[2023-03-01 20:17] LABS: Glucose,Whole Blood 301 mg/dL (70-110)
[2023-03-01] MEDS ORDERED: LINAGLIPTIN 5 MG TABLET PO SCH (21:00)
[2023-03-01] MEDS: ATORVASTATIN 40 MG TAB PO SCH (21:23)
[2023-03-01] MEDS: lisinopriL 20 MG TAB PO SCH (21:24)
[2023-03-01] MEDS: ZINC SULFATE 220 MG CAP PO SCH (21:24)
[2023-03-01] MEDS: PANTOPRAZOLE 40 MG TABLET PO SCH (21:24)
[2023-03-02 07:04] VITALS: BP 156/75; PULSE 66; TEMP 98.1
[2023-03-02 07:42] LABS: Glucose,Whole Blood 183 mg/dL (70-110)
[2023-03-02] MEDS: metFORMIN 500 MG TAB PO SCH (08:07)
[2023-03-02] MEDS: MULTIVITAMINS, THERA 1 EACH TAB PO SCH (08:07)
[2023-03-02] MEDS: SERTRALINE 50 MG TAB PO SCH (08:07)
[2023-03-02] MEDS: ASCORBIC ACID 500 MG TAB PO SCH (08:07)
[2023-03-02] MEDS: INSULIN ASPART (NovoLOG) 100 UNIT/ML VIAL SQ SCH ×2 (08:08→12:45)
[2023-03-02] MEDS: INSULIN DETEMIR (LEVEMIR) 100 UNIT/ML SYR SQ SCH (08:08)
--- NOTE | 2023-03-02 10:04 | P.DS ---
Providers Date of admission: 02/27/23 20:00 Expected date of discharge: 03/02/23 Attending physician: Andrea Cruz MD Consults: 02/28/23 08:25 Consult Physician Routine Consulting Provider: Paul Morrell Consult Reason/Comments: medical management Do you want consulting provider notified?: Yes 03/01/23 09:34 Consult Physician Routine Consulting Provider: Poncho Gomez Consult Reason/Comments: abdominal US result, hepatic stenosis, hepatomegaly Do you want consulting provider notified?: Yes Primary care physician: Shaq Kuo - Discharge Diagnosis(es) (1) Adjustment disorder with depressed mood Current Visit: Yes Status: Acute Priority: High (2) Bereavement Current Visit: Yes Status: Acute Priority: Medium Hospital Course: Admission HPI: Admission note was completed by Dr cohen "Patient is a , employed, 47-year-old male who is presenting with suicidal ideation. Patient was brought into the ED by his over concerns about pulling out a gun to harm himself. patient today states that over the past 8 months, he has been experiencing numerous stressors at the same time. He states that he has filed for divorce due to the relationship with his having gotten worse for the past few years. He also states that he lost his mother, with whom he was reconnecting emotionally, to terminal cancer in July 2022. 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 He endorses feeling depressed for a large portion of the past 4 months. He says that he has been trying to get his to take his emotions seriously but felt that she has not been doing so. As a result, he decided to pull out a gun yesterday and set it on top of the safe. He says that the gun was unloaded but that he told his that he wants to hurt himself with it. He reports that this was an attempt to gain her attention and so that she might take his emotions seriously but that it was not done an effort to attempt suicide. However, he admits that this is a serious action and that it could've potentially resulted in serious harm. In psychiatric review of systems, patient reports adequate sleep and energy. However, he endorses concentration issues and feelings of guilt. He denies anxiety. He denies constellation of symptoms consistent with xavi. He denies auditory and visual hallucinations. He denies suicidal and homicidal ideation currently, as asked and assessed. He states that his has changed the combination on the gun safe since then." Hospital course: Upon admission to the unit patient was directable and agreeable to commence treatment and signed adult voluntary form. Patient got along well with other patients on the unit and followed unit protocol. Patient was compliant with the medications and denied any side effects throughout hospital course. Patient was started on Zoloft 50 mg daily for mood/anxiety. Patient spoke of his stressors and engaged in therapy both group and individual. Patient was also seen by medical team for history and physical exam. patient was found to have elevated LFTs and an US was performed which showed hepatic steatosis. Commercial Door Installer spoke with patient about the importance of this finding and to follow up with his PCP for follow up[ and treatment. Throughout the course of the hospitalization patient gradually improved with regards to mood, anxiety, sleep and became more future oriented with improved insight and judgment. On the day of discharge patient denied any suicidal or homicidal ideations intent or plan denied any auditory or visual hallucinations. Patient endorsed wanting to live for his health, his marriage and family. The patient denied any access to guns or weapons. Patient denied any paranoia and did not endorse any delusions. Patient does not have a significant history of substance abuse and was counseled on abstaining from all substances including alcohol and marijuana. Patient was also counseled on the medications and need for regular compliance and was encouraged to follow-up with their outpatient appointment for mental health and also for primary care. Prior to discharge a family meeting will be arranged by secondary social studies teacher to answer any questions and ensure safety upon discharge. SW to ensure that guns and weapons are locked and or removed from the house and to ensure safety today prior to discharge. Mental status exam: General Appearance: Patient appears to be tall, overweight, stated age is alert, pleasant, and cooperative. Patient is in no acute distress and has improved hygiene and grooming Behavior: Patient is calmly seated without any agitated behavior. Speech: Patient's speech is fluent and nonpressured. Mood/Affect: Patient reports their mood is "better", affect is congruent and euthymic. Suicidality/Homicidality: Patient denies having any suicidal or homicidal ideation intent or plan. Perceptions: Patient denies any auditory or visual hallucinations. Though content/process: There is no evidence of any delusional thought content and thought process is linear and goal-directed. more future oriented Memory and concentration: AOX3, grossly intact for the purposes of this session. Can spell "WORLD" backwards correctly. Judgment and insight: improved with guarded prognosis Impression: Adjustment disorder with depressed mood Bereavement Plan: -Continue with discharge today as patient has improved and stabilized psychiatrically and is not currently an imminent threat to himself and/or others. Patient will remain at chronically elevated risk for harm to self and/or others due to his impulsivity. -Continue medications: Zoloft 50 mg daily for mood/anxiety -Patient was counseled on the need for medication compliance and appropriate follow-up at mental health and also primary care for medical issues. Patient verbalized understanding and agreed. -Social work to arrange for and conduct family meeting to ensure safety upon discharge and answer any questions/concerns. Social work also to arrange for patients follow up appointments for psychiatric care along with follow up with primary care provider. -Patient counseled on abstaining from recreational drugs and marijuana and alcohol. Was informed/educated on the adverse effects on their physical and mental health. Patient verbally agreed and understood. -Patient was instructed to return to the hospital or seek immediate medical care if their psychiatric or medical symptoms do worsen or reoccur. Allergies Allergy/AdvReac Type Severity Reaction Status Date / Time No Known Allergies Allergy Verified 02/27/23 17:42 Laboratory Results WBC 9.6 k/uL (3.8-10.6) 02/27/23 13:24 RBC 5.59 m/uL (4.30-5.90) 02/27/23 13:24 Hgb 17.0 gm/dL (13.0-17.5) 02/27/23 13:24 Hct 50.6 % (39.0-53.0) 02/27/23 13:24 MCV 90.5 fL (80.0-100.0) 02/27/23 13:24 MCH 30.4 pg (25.0-35.0) 02/27/23 13:24 MCHC 33.5 g/dL (31.0-37.0) 02/27/23 13:24 RDW 12.5 % (11.5-15.5) 02/27/23 13:24 Plt Count 232 k/uL (150-450) 02/27/23 13:24 MPV 9.0 02/27/23 13:24 Neutrophils % 74 % 02/27/23 13:24 Lymphocytes % 17 % 02/27/23 13:24 Monocytes % 6 % 02/27/23 13:24 Eosinophils % 2 % 02/27/23 13:24 Basophils % 1 % 02/27/23 13:24 Neutrophils # 7.1 k/uL (1.3-7.7) 02/27/23 13:24 Lymphocytes # 1.6 k/uL (1.0-4.8) 02/27/23 13:24 Monocytes # 0.5 k/uL (0-1.0) 02/27/23 13:24 Eosinophils # 0.2 k/uL (0-0.7) 02/27/23 13:24 Basophils # 0.1 k/uL (0-0.2) 02/27/23 13:24 PT 10.4 sec (9.0-12.0) 02/27/23 13:24 INR 1.0 (<1.2) 02/27/23 13:24 APTT 22.6 sec (22.0-30.0) 02/27/23 13:24 D-Dimer 0.30 mg/L FEU (<0.60) 02/27/23 13:24 Sodium 135 mmol/L (137-145) L 03/01/23 10:36 Potassium 5.0 mmol/L (3.5-5.1) 03/01/23 10:36 Chloride 100 mmol/L (98-107) 03/01/23 10:36 Carbon Dioxide 27 mmol/L (22-30) 03/01/23 10:36 Anion Gap 8 mmol/L 03/01/23 10:36 BUN 16 mg/dL (9-20) 03/01/23 10:36 Creatinine 0.93 mg/dL (0.66-1.25) 03/01/23 10:36 Est GFR (CKD-EPI)AfAm >90 (>60 ml/min/1.73 sqM) 03/01/23 10:36 Est GFR (CKD-EPI)NonAf >90 (>60 ml/min/1.73 sqM) 03/01/23 10:36 Glucose 333 mg/dL (74-99) H 03/01/23 10:36 POC Glucose (mg/dL) 183 mg/dL (70-110) H 03/02/23 07:40 POC Glu Red Lead Burner ID Gonsalo Jorge 03/02/23 07:[address] Glu mg/dL 263 mg/dL 02/27/23 13:24 Hemoglobin A1c 10.8 % (<=6.0) H 02/27/23 13:24 Calcium 9.6 mg/dL (8.4-10.2) 03/01/23 10:36 Magnesium 1.8 mg/dL (1.6-2.3) 02/27/23 13:24 Total Bilirubin 1.0 mg/dL (0.2-1.3) 03/01/23 10:36 AST 69 U/L (17-59) H 03/01/23 10:36 ALT 111 U/L (4-49) H 03/01/23 10:36 Alkaline Phosphatase 96 U/L (38-126) 03/01/23 10:36 Total Protein 7.4 g/dL (6.3-8.2) 03/01/23 10:36 Albumin 4.1 g/dL (3.5-5.0) 03/01/23 10:36 Triglycerides 123.00 mg/dL (0.00-149.00) 02/27/23 13:24 Cholesterol 251.00 mg/dL (0.00-200.00) H 02/27/23 13:24 LDL Cholesterol, Calc 182.2 mg/dL (0.0-131.0) H 02/27/23 13:24 VLDL Cholesterol, Calc 24.60 mg/dL (5.00-40.00) 02/27/23 13:24 HDL Cholesterol 44.20 mg/dL (40.00-60.00) 02/27/23 13:24 Cholesterol/HDL Ratio 5.68 Ratio 02/27/23 13:24 TSH 0.453 mIU/L (0.465-4.680) L 02/27/23 13:24 Free T4 1.96 ng/dL (0.80-1.80) H 02/27/23 13:24 Urine Color Yellow 02/28/23 12:40 Urine Appearance Clear (Clear) 02/28/23 12:40 Urine pH 5.5 (5.0-8.0) 02/28/23 12:40 Ur Specific Perry 1.033 (1.001-1.035) 02/28/23 12:40 Urine Protein 1+ (Negative) H 02/28/23 12:40 Urine Glucose (UA) 4+ (Negative) H 02/28/23 12:40 Urine Ketones 1+ (Negative) H 02/28/23 12:40 Urine Blood Negative (Negative) 02/28/23 12:40 Urine Nitrite Negative (Negative) 02/28/23 12:40 Urine Bilirubin Negative (Negative) 02/28/23 12:40 Urine Urobilinogen 2.0 mg/dL (<2.0) 02/28/23 12:40 Ur Leukocyte Esterase Negative (Negative) 02/28/23 12:40 Urine RBC 1 /hpf (0-5) 02/28/23 12:40 Urine WBC 1 /hpf (0-5) 02/28/23 12:40 Urine Mucus Few /hpf (None) H 02/28/23 12:40 Urine Opiates Screen Not Detected (NotDetected) 02/28/23 12:40 Ur Oxycodone Screen Not Detected (NotDetected) 02/28/23 12:40 Urine Methadone Screen Not Detected (NotDetected) 02/28/23 12:40 Ur Propoxyphene Screen Not Detected (NotDetected) 02/28/23 12:40 Ur Barbiturates Screen Not Detected (NotDetected) 02/28/23 12:40 U Tricyclic Antidepress Not Detected (NotDetected) 02/28/23 12:40 Ur Phencyclidine Scrn Not Detected (NotDetected) 02/28/23 12:40 Ur Amphetamines Screen Not Detected (NotDetected) 02/28/23 12:40 U Methamphetamines Scrn Not Detected (NotDetected) 02/28/23 12:40 U Benzodiazepines Scrn Not Detected (NotDetected) 02/28/23 12:40 Urine Cocaine Screen Not Detected (NotDetected) 02/28/23 12:40 U Marijuana (THC) Screen Not Detected (NotDetected) 02/28/23 12:40 Coronavirus (PCR) Not Detected (Not Detectd) 02/27/23 18:53 Vital Signs Temp 98.1 F 06/20/23 06:00 Pulse 66 03/02/23 06:00 Resp 16 03/02/23 06:00 BP 156/75 03/02/23 06:00 Pulse Ox 97 03/02/23 06:00 FiO2 Intake & Output 03/01/23 03/02/23 03/02/23 18:59 06:59 18:59 Weight 131.8 kg Patient Condition at Discharge: Stable Plan - Discharge Summary Discharge Rx Participant: No New Discharge Prescriptions: New Atorvastatin [Lipitor] 40 mg PO HS 30 Days #30 tab Sertraline [Zoloft] 50 mg PO DAILY 30 Days #30 tab Continue lisinopriL 40 mg PO DAILY Multivit-Mins/Iron/Folic/Lycop [Centrum Men's Tablet] 1 tab PO DAILY Omeprazole 20 mg PO DAILY Sildenafil Citrate 50 mg PO DAILY PRN PRN Reason: E.D. Ascorbic Acid [Vitamin C] 1,000 mg PO DAILY Zinc Gluconate [Zinc] 50 mg PO DAILY sitaGLIPtin [Januvia] 100 mg PO DAILY metFORMIN HCL ER [Glucophage XR] 1,000 mg PO BID Discharge Medication List Ascorbic Acid [Vitamin C] 1,000 mg PO DAILY 02/27/23 [History] Multivit-Mins/Iron/Folic/Lycop [Centrum Men's Tablet] 1 tab PO DAILY 02/27/23 [History] Omeprazole 20 mg PO DAILY 02/27/23 [History] Sildenafil Citrate 50 mg PO DAILY PRN 02/27/23 [History] Zinc Gluconate [Zinc] 50 mg PO DAILY 02/27/23 [History] lisinopriL 40 mg PO DAILY 02/27/23 [History] metFORMIN HCL ER [Glucophage XR] 1,000 mg PO BID 02/27/23 [History] sitaGLIPtin [Januvia] 100 mg PO DAILY 02/27/23 [History] Atorvastatin [Lipitor] 40 mg PO HS 30 Days #30 tab 03/02/23 [Rx] Sertraline [Zoloft] 50 mg PO DAILY 30 Days #30 tab 03/02/23 [Rx] Follow up Appointment(s)/Referral(s): Francesco Benavidez NPC [REFERRING] - 1-2 days Poncho Gomez MD [STAFF PHYSICIAN] - 1 Week Patient Instructions/Handouts: Depression (DC) Activity/Diet/Wound Care/Special Instructions: Avoid the use of street drugs and alcohol. Take all medications as prescribed. When you are in need of refills on your medications, please contact your medical provider and/or outpatient psychiatrist to have this done. Please go to scheduled outpatient appointments for aftercare treatment. If symptoms return or become worse, call the crisis line at and/or go to the nearest emergency room for evaluation. Discharge Disposition: HOME SELF-CARE
[2023-03-02 12:42] LABS: Glucose,Whole Blood 246 mg/dL (70-110)
== END 2023-03-02 16:01 | disposition home or self-care (01) | DRG 881 ==
LOC: EC 12:23 → 3MHU 20:00
PROVIDERS: ADMIT Psychiatry & Neurology Psychiatry; ATTEND Psychiatry & Neurology Psychiatry
DX: F43.21 Adjustment disorder with depressed mood (principal); R45.851 Suicidal ideations; R16.0 Hepatomegaly, not elsewhere classified; K76.0 Fatty (change of) liver, not elsewhere classified; E11.65 Type 2 diabetes mellitus with hyperglycemia; I10 Essential (primary) hypertension; Z68.34 Body mass index [BMI] 34.0-34.9, adult; E66.9 Obesity, unspecified; E78.5 Hyperlipidemia, unspecified; Z20.822 Contact with and (suspected) exposure to COVID-19; K80.20 Calculus of gallbladder without cholecystitis without obstruction; F41.9 Anxiety disorder, unspecified; K21.9 Gastro-esophageal reflux disease without esophagitis; Z79.84 Long term (current) use of oral hypoglycemic drugs; Z79.899 Other long term (current) drug therapy; Z63.4 Disappearance and death of family member; Z62.811 Personal history of psychological abuse in childhood; Z81.8 Family history of other mental and behavioral disorders; Z63.5 Disruption of family by separation and divorce
CPT/HCPCS: 36415; 71046; 76705; 80053; 80061; 80306; 81001; 82075; 83036; 83735; 84439; 84443; 85025; 85379; 85610; 85730; 87635; 93005; 99285